=== PATIENT | female | born 1960 | race Caucasian/White ===

== ENCOUNTER 2020-04-14 13:03 | Inpatient (IN) | payer MEDICAID ==
[~2020-04-14] VITALS: Ht 142.2 cm; Wt 67.6 kg
[2020-04-14 14:23] LABS: HEMATOCRIT. 37.4 % (36.0-48.0); HEMOGLOBIN. 11.7 g/dL (12.0-16.0); MEAN CORPUSCULAR HEMOGLOBIN 26.2 pg (28.0-32.0); MEAN CORPUSCULAR VOLUME 83.9 fL (81.0-99.0); MEAN PLATELET VOLUME 8.7 fl (7.4-10.4); PLATELET 302 x1000/uL (130-400); RED BLOOD CELL COUNT 4.46 mill/uL (4.2-5.4); RED CELL DISTRIBUTION WIDTH 15.9 % (11.6-14.6)
[2020-04-14 14:27] LABS: CHLORIDE 103 mEq/L (98-107)
[2020-04-14 14:54] LABS: PLATELET ESTIMATE NORMAL
[2020-04-14] MEDS ORDERED: CEFTRIAXONE 1 G PREMIX 50 ML IV ONE (16:15)
[2020-04-14] MEDS ORDERED: METRONIDAZOLE 500 MG PREMIX 100 ML IV ONE (16:15)
[2020-04-14] MEDS ORDERED: MAGNESIUM/ALUMINUM HYDROXIDE/SIMETHICONE 30ML UDC PO PRN (18:45)
[2020-04-14] MEDS ORDERED: ONDANSETRON HCL 4MG/2ML INJ IV PRN (18:45)
[2020-04-14] MEDS ORDERED: DIPHENHYDRAMINE 50MG/ML VIAL IV PRN (18:45)
[2020-04-14] MEDS ORDERED: DEXTROSE 50% WATER 50ML SYRINGE IV PRN (18:45)
[2020-04-14] MEDS ORDERED: ACETAMINOPHEN 325MG TABLET PO PRN (18:45)
[2020-04-14] MEDS ORDERED: CLONIDINE 0.1MG TABLET PO PRN (18:45)
[2020-04-14] MEDS ORDERED: PIPERACILLIN/TAZ 3.375G PREMIX 50 ML IV SCH (20:00)
[2020-04-14] MEDS: SODIUM CHLORIDE 0.9% 1,000 ML IV SCH (20:15)
[2020-04-14] MEDS ORDERED: METRONIDAZOLE 500 MG PREMIX 100 ML IV SCH (21:00)
[2020-04-14] MEDS: BLOOD SUGAR DIAGNOSTIC STRIP TEST SCH (21:00)
[2020-04-14 21:20] VITALS: BP_SYST 115; BP_SYST 121; BP_DIAS 63; BP_DIAS 78
[2020-04-15] VITALS: BP 125/70
[2020-04-15] MEDS: ACETAMINOPHEN 325MG TABLET PO PRN ×2 (00:20→04:25)
[2020-04-15] MEDS: PIPERACILLIN/TAZOBACTAM 3.375 G in DEXT 5% WATER 100 ML IV SCH ×4 (00:53→23:40)
[2020-04-15] MEDS ORDERED: FAMO20TA8 PO (01:08)
[2020-04-15] MEDS ORDERED: ALBU6.7H9 INH (01:08)
[2020-04-15] MEDS ORDERED: HYDR25SU51 RC (01:08)
[2020-04-15] MEDS: INSULIN LISPRO 100 UNITS/ML SUBCUT SCH ×5 (01:51→21:00)
[2020-04-15] MEDS: METRONIDAZOLE 500 MG PREMIX 100 ML IV SCH ×3 (02:04→17:57)
[2020-04-15] MEDS ORDERED: *PATIENT'S OWN MEDICATION STORAGE XX SCH (03:15)
[2020-04-15 04:00] VITALS: BP 92/54
[2020-04-15 06:06] LABS: BASOPHILS % 0.2 % (0.0-2.0); HEMATOCRIT. 31.9 % (36.0-48.0); HEMOGLOBIN. 10.1 g/dL (12.0-16.0); LYMPHOCYTES % 7.5 % (20.0-50.0); MEAN CORPUSCULAR HEMOGLOBIN 26.7 pg (28.0-32.0); MEAN CORPUSCULAR VOLUME 84.2 fL (81.0-99.0); MEAN PLATELET VOLUME 9.2 fl (7.4-10.4); NEUTROPHILS % 89.3 % (40.0-76.0); PLATELET 247 x1000/uL (130-400); RED BLOOD CELL COUNT 3.78 mill/uL (4.2-5.4); RED CELL DISTRIBUTION WIDTH 15.7 % (11.6-14.6)
[2020-04-15] MEDS: BLOOD SUGAR DIAGNOSTIC STRIP TEST SCH ×4 (07:20→21:31)
[2020-04-15 08:00] VITALS: BP 100/60
[2020-04-15 08:28] LABS: CHLORIDE 105 mEq/L (98-107)
[2020-04-15] MEDS: PANTOPRAZOLE SODIUM 40 MG/VIAL IV SCH (09:31)
[2020-04-15] MEDS ORDERED: POTASSIUM CHLORIDE 20MEQ TABLET SR PO SCH (11:30)
[2020-04-15 12:00] VITALS: BP 90/56
[2020-04-15 16:00] VITALS: BP 104/75
[2020-04-15] MEDS ORDERED: MORPHINE SULFATE 2 MG/ML CPJ (NOT FOR IM USE) IV PRN (16:15)
[2020-04-15 20:00] VITALS: BP 121/68
[2020-04-16] VITALS: BP 99/65
[2020-04-16] MEDS: METRONIDAZOLE 500 MG PREMIX 100 ML IV SCH ×3 (02:37→21:00)
[2020-04-16 04:00] VITALS: BP 91/56
[2020-04-16] MEDS: BLOOD SUGAR DIAGNOSTIC STRIP TEST SCH ×4 (07:20→21:00)
[2020-04-16] MEDS: INSULIN LISPRO 100 UNITS/ML SUBCUT SCH ×4 (07:50→21:00)
[2020-04-16 08:00] VITALS: BP 106/66
[2020-04-16] MEDS: PANTOPRAZOLE SODIUM 40 MG/VIAL IV SCH (09:15)
[2020-04-16] MEDS: PIPERACILLIN/TAZOBACTAM 3.375 G in DEXT 5% WATER 100 ML IV SCH ×2 (09:15→18:23)
[2020-04-16 12:00] VITALS: BP 102/60
[2020-04-16] MEDS ORDERED: DIATR MEGLU/DIATRIZOATE SOLN 30ML PO SCH (13:15)
[2020-04-16] MEDS ORDERED: IOHEXOL-300 100 ML BOTTLE ONE (15:10)
[2020-04-16] MEDS ORDERED: DIATR MEGLU/DIATRIZOATE SOLN 120ML ONE (15:10)
[2020-04-16 16:00] VITALS: BP 102/60
[2020-04-16 20:00] VITALS: BP 107/60
[2020-04-17] VITALS: BP 108/64
[2020-04-17] MEDS: PIPERACILLIN/TAZOBACTAM 3.375 G in DEXT 5% WATER 100 ML IV SCH ×3 (00:17→18:14)
[2020-04-17] MEDS: METRONIDAZOLE 500 MG PREMIX 100 ML IV SCH ×3 (02:16→18:15)
[2020-04-17 04:00] VITALS: BP 111/66
[2020-04-17] MEDS: BLOOD SUGAR DIAGNOSTIC STRIP TEST SCH ×4 (07:20→21:00)
[2020-04-17] MEDS: INSULIN LISPRO 100 UNITS/ML SUBCUT SCH ×4 (07:50→21:00)
[2020-04-17 08:00] VITALS: BP 109/64
[2020-04-17] MEDS: PANTOPRAZOLE SODIUM 40 MG/VIAL IV SCH (08:52)
[2020-04-17 12:00] VITALS: BP 118/68
[2020-04-17 16:00] VITALS: BP 116/62
[2020-04-17 16:47] LABS: BASOPHILS % 0.6 % (0.0-2.0); EOSINOPHILS % 0.4 % (0.0-5.0); HEMATOCRIT. 33.7 % (36.0-48.0); HEMOGLOBIN. 10.6 g/dL (12.0-16.0); LYMPHOCYTES % 13.3 % (20.0-50.0); MEAN CORPUSCULAR HEMOGLOBIN 26.4 pg (28.0-32.0); MEAN CORPUSCULAR VOLUME 83.9 fL (81.0-99.0); MEAN PLATELET VOLUME 8.9 fl (7.4-10.4); MONOCYTES % 5.4 % (2.0-8.0); NEUTROPHILS % 80.3 % (40.0-76.0); PLATELET 241 x1000/uL (130-400); RED BLOOD CELL COUNT 4.01 mill/uL (4.2-5.4); RED CELL DISTRIBUTION WIDTH 16.1 % (11.6-14.6)
[2020-04-17 17:04] LABS: CHLORIDE 104 mEq/L (98-107)
[2020-04-17 20:00] VITALS: BP 127/72
[2020-04-18] VITALS: BP 112/61
[2020-04-18] MEDS: METRONIDAZOLE 500 MG PREMIX 100 ML IV SCH ×2 (02:15→11:36)
[2020-04-18] MEDS: PIPERACILLIN/TAZOBACTAM 3.375 G in DEXT 5% WATER 100 ML IV SCH ×2 (02:15→08:00)
[2020-04-18] MEDS: SODIUM CHLORIDE 0.9% 1,000 ML IV SCH (02:20)
[2020-04-18 04:00] VITALS: BP 121/61
[2020-04-18] MEDS: BLOOD SUGAR DIAGNOSTIC STRIP TEST SCH ×2 (07:29→12:21)
[2020-04-18] MEDS: INSULIN LISPRO 100 UNITS/ML SUBCUT SCH ×2 (07:35→12:22)
[2020-04-18 08:00] VITALS: BP 120/66
[2020-04-18] MEDS: PANTOPRAZOLE SODIUM 40 MG/VIAL IV SCH (09:00)
[2020-04-18 10:41] LABS: BASOPHILS % 0.4 % (0.0-2.0); EOSINOPHILS % 0.4 % (0.0-5.0); HEMATOCRIT. 33.7 % (36.0-48.0); HEMOGLOBIN. 10.6 g/dL (12.0-16.0); LYMPHOCYTES % 11.8 % (20.0-50.0); MEAN CORPUSCULAR HEMOGLOBIN 26.1 pg (28.0-32.0); MEAN PLATELET VOLUME 8.4 fl (7.4-10.4); MONOCYTES % 7.9 % (2.0-8.0); NEUTROPHILS % 79.5 % (40.0-76.0); PLATELET 270 x1000/uL (130-400); RED BLOOD CELL COUNT 4.06 mill/uL (4.2-5.4); RED CELL DISTRIBUTION WIDTH 15.8 % (11.6-14.6)
[2020-04-18 10:43] LABS: CHLORIDE 105 mEq/L (98-107)
[2020-04-18 12:00] VITALS: BP 119/71
[2020-04-18] MEDS ORDERED: METRONIDAZOLE 500MG TABLET PO SCH (22:00)
== END 2020-04-18 15:30 | disposition home or self-care (01) | DRG 720 ==
LOC: ER 13:03 → 6EST 17:19 → ENRESERV 19:25
PROVIDERS: ADMIT Internal Medicine; ATTEND Internal Medicine
DX: A41.9 Sepsis, unspecified organism (principal); E11.9 Type 2 diabetes mellitus without complications; I10 Essential (primary) hypertension; E87.6 Hypokalemia; K44.9 Diaphragmatic hernia without obstruction or gangrene; N83.201 Unspecified ovarian cyst, right side; K64.9 Unspecified hemorrhoids; E88.09 Other disorders of plasma-protein metabolism, not elsewhere classified; K57.93 Diverticulitis of intestine, part unspecified, without perforation or abscess with bleeding; J84.10 Pulmonary fibrosis, unspecified
CPT/HCPCS: 36415; 74176; 74177; 80048; 80053; 82962; 83036; 85025; 99285; C1893; C9113; J0696; J1815; J2270; J2543; J3490; J7040; J7060; Q9963; Q9967

== ENCOUNTER 2021-11-30 09:56 | Inpatient (IN) | payer MEDICAID ==
[~2021-11-30] VITALS: Ht 154.9 cm; Wt 57.2 kg
[~2021-11-30 09:56] MED LIST: ALBU6.7H9 INH; FAMO20TA8 PO; HYDR25SU51 RC
[2021-11-30] MEDS ORDERED: ACETAMINOPHEN 650MG SUPP PR ONE (10:15)
[2021-11-30] MEDS ORDERED: SODIUM CHLORIDE 0.9% 1000ML BAG (SEPSIS BOLUS) IV ONE (10:15)
[2021-11-30] MEDS ORDERED: VANCOMYCIN 1G PREMIX 200 ML IV ONE (10:15)
[2021-11-30] MEDS ORDERED: PIPERACILLIN/TAZ 3.375G PREMIX 50 ML IV ONE (10:15)
[2021-11-30 10:29] LABS: HEMATOCRIT. 24.1 % (36.0-48.0); HEMOGLOBIN. 7.4 g/dL (12.0-16.0); MEAN CORPUSCULAR HEMOGLOBIN 30.9 pg (28.0-32.0); MEAN CORPUSCULAR VOLUME 100.5 fL (81.0-99.0); MEAN PLATELET VOLUME 7.6 fl (7.4-10.4); PLATELET 355 x1000/uL (130-400); RED CELL DISTRIBUTION WIDTH 23.1 % (11.6-14.6)
[2021-11-30 10:33] LABS: CLARITY URINE TURBID (CLEAR); COLOR URINE YELLOW (YELLOW); KETONES URINE NEGATIVE (NEGATIVE); LEUKOCYTE ESTERASE URINE 3+ (NEGATIVE); NITRITE URINE POSITIVE (NEGATIVE); OCCULT BLOOD URINE 1+ (NEGATIVE); PROTEIN URINE 2+ (NEGATIVE); SPECIFIC GRAVITY URINE 1.011 (1.005-1.030)
[2021-11-30 10:37] LABS: CHLORIDE 112 mEq/L (98-107)
[2021-11-30 10:40] LABS: INR 1.6; PROTHROMBIN TIME 16.5 sec (9.6-11.0)
[2021-11-30 11:05] LABS: PLATELET ESTIMATE NORMAL
[2021-11-30] MEDS ORDERED: SODIUM CHLORIDE 0.9% 1,000 ML IV ONE (12:45)
[2021-11-30] MEDS ORDERED: MAGNESIUM/ALUMINUM HYDROXIDE/SIMETHICONE 30ML UDC PO PRN (15:00)
[2021-11-30] MEDS ORDERED: CLONIDINE 0.1MG TABLET PO PRN (15:00)
[2021-11-30] MEDS ORDERED: NITROGLYCERIN 0.4MG TABLET SL SL PRN (15:00)
[2021-11-30] MEDS ORDERED: SODIUM CHLORIDE 0.9% 1000ML BAG (SEPSIS BOLUS) IV NR (15:00)
[2021-11-30] MEDS ORDERED: ZOLPIDEM TARTRATE 5MG TABLET PO PRN (15:00)
[2021-11-30] MEDS ORDERED: ACETAMINOPHEN 325MG TABLET PO PRN (15:00)
[2021-11-30] MEDS ORDERED: SODIUM CHLORIDE 0.9% 1,000 ML IV SCH (15:00)
[2021-11-30] MEDS ORDERED: GUAIFENESIN 200MG/10ML SUGAR FREE UDC PO PRN (15:00)
[2021-11-30] MEDS ORDERED: DOCUSATE SODIUM 100MG CAPSULE PO PRN (15:00)
[2021-11-30] MEDS ORDERED: IPRATROPIUM/ALBUTEROL 0.5-3(2.5)MG/3ML NEB NEB PRN (15:00)
[2021-11-30] MEDS ORDERED: ONDANSETRON HCL 4MG/2ML INJ IV PRN (15:00)
[2021-11-30 17:52] VITALS: BP 67/43
[2021-11-30] MEDS: PIPERACILLIN/TAZOBACTAM 3.375 G in DEXTROSE 5% WATER 50 ML IV SCH ×2 (18:40→22:47)
[2021-11-30] MEDS: DEXT 5%/0.9% NACL 1,000 ML IV SCH ×2 (18:41→22:47)
[2021-11-30 18:54] LABS: T4 FREE 0.98 ng/dL (0.76-1.46)
[2021-11-30 19:06] LABS: VITAMIN B12 SERUM > 2000.0 pg/mL (211-911)
[2021-11-30 20:00] VITALS: BP 88/56
[2021-11-30 21:16] VITALS: BP 88/56
[2021-11-30] MEDS: ACETAMINOPHEN 325MG TABLET PO PRN (22:55)
[2021-12-01] VITALS: BP 64/35
[2021-12-01 00:30] LABS: *AMPHETAMINES SCREEN URINE NEGATIVE (NEGATIVE); *BARBITURATES SCREEN URINE NEGATIVE (NEGATIVE); *BENZODIAZEPINES SCREEN URINE NEGATIVE (NEGATIVE); *COCAINE SCREEN URINE NEGATIVE (NEGATIVE); CANNABINOID URINE SCREEN NEGATIVE (NEGATIVE); METHADONE URINE SCREEN NEGATIVE (NEGATIVE); OPIATES URINE SCREEN PRESUMTIVE POSITIVE (NEGATIVE); PHENCYCLIDINE URINE SCREEN NEGATIVE (NEGATIVE)
[2021-12-01 04:00] VITALS: BP 66/42
[2021-12-01] MEDS: PIPERACILLIN/TAZOBACTAM 3.375 G in DEXTROSE 5% WATER 50 ML IV SCH ×3 (05:33→21:19)
[2021-12-01 06:41] LABS: CHLORIDE 115 mEq/L (98-107)
[2021-12-01 06:56] LABS: PHOSPHORUS 3.7 mg/dL (2.5-4.9)
[2021-12-01 09:22] LABS: HEMATOCRIT. 26.5 % (36.0-48.0); MEAN CORPUSCULAR HEMOGLOBIN 30.9 pg (28.0-32.0); MEAN PLATELET VOLUME 8.7 fl (7.4-10.4); PLATELET 209 x1000/uL (130-400); RED BLOOD CELL COUNT 2.59 mill/uL (4.2-5.4); RED CELL DISTRIBUTION WIDTH 23.9 % (11.6-14.6)
[2021-12-01 09:25] LABS: MEAN CORPUSCULAR VOLUME 102.4 fL (81.0-99.0)
[2021-12-01] MEDS: ACETAMINOPHEN 325MG TABLET PO PRN (09:37)
[2021-12-01] MEDS: PANTOPRAZOLE SODIUM 40 MG/VIAL IV SCH (09:38)
[2021-12-01 10:39] LABS: PLATELET ESTIMATE NORMAL
[2021-12-01] MEDS: VANCOMYCIN 750MG PMX (XELLIA) 150 ML IV SCH (11:41)
[2021-12-01 12:00] VITALS: BP 62/39
[2021-12-01 16:00] VITALS: BP 76/47
[2021-12-01] MEDS: TRAMADOL 50MG TABLET PO PRN ×2 (16:28→22:40)
[2021-12-01] MEDS: DEXT 5%/0.9% NACL 1,000 ML IV SCH ×2 (19:19→21:19)
[2021-12-01 20:00] VITALS: BP 75/48
[2021-12-02] VITALS: BP 75/51
[2021-12-02] MEDS: ACETAMINOPHEN 325MG TABLET PO PRN ×2 (02:49→17:06)
[2021-12-02 04:00] VITALS: BP 72/49
[2021-12-02] MEDS: PIPERACILLIN/TAZOBACTAM 3.375 G in DEXTROSE 5% WATER 50 ML IV SCH ×3 (05:16→21:25)
[2021-12-02 05:53] LABS: CHLORIDE 113 mEq/L (98-107)
[2021-12-02 05:55] LABS: INR 1.6; PROTHROMBIN TIME 16.1 sec (9.6-11.0)
[2021-12-02 06:21] LABS: HEMATOCRIT. 26.1 % (36.0-48.0); MEAN CORPUSCULAR HEMOGLOBIN 30.9 pg (28.0-32.0); MEAN CORPUSCULAR VOLUME 100.7 fL (81.0-99.0); MEAN PLATELET VOLUME 9.5 fl (7.4-10.4); PLATELET 114 x1000/uL (130-400); RED BLOOD CELL COUNT 2.59 mill/uL (4.2-5.4); RED CELL DISTRIBUTION WIDTH 23.7 % (11.6-14.6)
[2021-12-02] MEDS ORDERED: ENOXAPARIN 40MG/0.4ML SYR SUBCUT SCH (09:00)
[2021-12-02] MEDS: PANTOPRAZOLE SODIUM 40 MG/VIAL IV SCH (09:20)
[2021-12-02] MEDS: DEXT 5%/0.9% NACL 1,000 ML IV SCH ×2 (09:35→18:00)
[2021-12-02 12:00] VITALS: BP 78/51
[2021-12-02] MEDS: VANCOMYCIN 750MG PMX (XELLIA) 150 ML IV SCH (12:02)
[2021-12-02] MEDS: TRAMADOL 50MG TABLET PO PRN ×3 (13:12→22:54)
[2021-12-02 15:02] LABS: PLATELET ESTIMATE SLIGHTLY DECREASED
[2021-12-02 16:00] VITALS: BP_SYST 80; BP_DIAS 45; BP_DIAS 50
[2021-12-02 20:22] VITALS: BP 84/45
[2021-12-02 23:53] VITALS: BP 94/64
[2021-12-03 04:00] VITALS: BP 90/51
[2021-12-03] MEDS: DEXT 5%/0.9% NACL 1,000 ML IV SCH ×2 (04:00→14:00)
[2021-12-03] MEDS: PIPERACILLIN/TAZOBACTAM 3.375 G in DEXTROSE 5% WATER 50 ML IV SCH (06:44)
[2021-12-03] MEDS: TRAMADOL 50MG TABLET PO PRN ×2 (06:47→15:40)
[2021-12-03 07:31] LABS: HEMATOCRIT. 24.8 % (36.0-48.0); HEMOGLOBIN. 7.6 g/dL (12.0-16.0); MEAN CORPUSCULAR HEMOGLOBIN 30.9 pg (28.0-32.0); MEAN CORPUSCULAR VOLUME 100.5 fL (81.0-99.0); MEAN PLATELET VOLUME 10.4 fl (7.4-10.4); PLATELET 92 x1000/uL (130-400); RED BLOOD CELL COUNT 2.47 mill/uL (4.2-5.4); RED CELL DISTRIBUTION WIDTH 23.8 % (11.6-14.6)
[2021-12-03 08:00] VITALS: BP 93/52
[2021-12-03] MEDS: PANTOPRAZOLE SODIUM 40 MG/VIAL IV SCH (08:35)
[2021-12-03 10:03] LABS: NUCLEATED RED BLOOD CELLS 1 /100 WBC
[2021-12-03 10:05] LABS: PLATELET ESTIMATE DECREASED
[2021-12-03] MEDS: ACETAMINOPHEN 325MG TABLET PO PRN ×2 (11:29→17:21)
[2021-12-03] MEDS: VANCOMYCIN 750MG PMX (XELLIA) 150 ML IV SCH (11:44)
[2021-12-03] MEDS: MEROPENEM 500MG in NORMAL SALINE 50ML IV SCH ×2 (11:56→20:27)
[2021-12-03 12:00] VITALS: BP_SYST 115; BP_SYST 90; BP_DIAS 52; BP_DIAS 76
[2021-12-03 16:00] VITALS: BP 90/51
[2021-12-03] MEDS ORDERED: GABA-532 PO (18:28)
[2021-12-03] MEDS ORDERED: HYDR-4009 MT (18:28)
[2021-12-03 20:00] VITALS: BP 83/50
[2021-12-04] VITALS: BP 89/58
[2021-12-04] MEDS: DEXT 5%/0.9% NACL 1,000 ML IV SCH (00:51)
[2021-12-04 04:00] VITALS: BP 93/58
[2021-12-04] MEDS: TRAMADOL 50MG TABLET PO PRN (06:28)
[2021-12-04 08:00] VITALS: BP 114/93
[2021-12-04] MEDS ORDERED: NITR-87 MT (09:24)
[2021-12-04] MEDS: PANTOPRAZOLE SODIUM 40 MG/VIAL IV SCH (11:52)
[2021-12-04] MEDS: MEROPENEM 500MG in NORMAL SALINE 50ML IV SCH (11:52)
[2021-12-04 12:00] VITALS: BP 103/66
[2021-12-04 13:18] VITALS: BP 124/63
== END 2021-12-04 13:40 | disposition home or self-care (01) | DRG 720 ==
LOC: ER 09:56 → 7WST 12:32 → EDBEDREQ 12:34 → EDBEDREQTM 12:34 → ENRESERV 13:50
PROVIDERS: ADMIT Internal Medicine; ATTEND Internal Medicine
DX: A41.9 Sepsis, unspecified organism (principal); G92.8 Other toxic encephalopathy; E43 Unspecified severe protein-calorie malnutrition; N17.9 Acute kidney failure, unspecified; I95.9 Hypotension, unspecified; C79.9 Secondary malignant neoplasm of unspecified site; D53.9 Nutritional anemia, unspecified; I10 Essential (primary) hypertension; N39.0 Urinary tract infection, site not specified; R74.01 Elevation of levels of liver transaminase levels; R65.20 Severe sepsis without septic shock; Z66 Do not resuscitate; Z68.23 Body mass index [BMI] 23.0-23.9, adult; Z93.3 Colostomy status; Z85.038 Personal history of other malignant neoplasm of large intestine
CPT/HCPCS: 36415; 71045; 74018; 80048; 80053; 80061; 80202; 80305; 81003; 82607; 82746; 83036; 83540; 83550; 83605; 83735; 84100; 84145; 84439; 84443; 85025; 86022; 87077; 87186; 92610; 93005; 93306; 93970; 99291; A6261; C9113; J1650; J2185; J2405; J2543; J3370; J7030; J7042; J7060